=== PATIENT | male | born 1945 | race Caucasian/White ===

== ENCOUNTER 2016-07-06 23:56 | Emergency (ER) | payer MEDICARE ==
[~2016-07-06] VITALS: Ht 182.9 cm; Wt 116.6 kg
[~2016-07-06 23:56] MED LIST: AMOXICILLIN500 MG PO; ASPIRIN LOW DOS81 M1 PO; ATORVASTATIN CA20 MG PO; TOPROL XL50 MG PO
[2016-07-07] MEDS ORDERED: ATORVASTATIN CA10 MG PO (00:14)
[2016-07-07 01:22] LABS: URINE BILIRUBIN - DIPSTICK NEGATIVE (NEGATIVE); URINE BLOOD DIPSTICK NEGATIVE (NEGATIVE); URINE CLARITY CLEAR; URINE COLOR YELLOW; URINE GLUCOSE - DIPSTICK NEGATIVE (NEGATIVE); URINE KETONE TRACE mg/dL (NEGATIVE); URINE LEUK ESTERASE NEGATIVE (NEGATIVE); URINE NITRITE - DIPSTICK NEGATIVE (Negative); URINE PROTEIN - DIPSTICK NEGATIVE (NEG-TRACE); URINE SPECIFIC GRAVITY 1.015; URINE UROBILINOGEN - DIPSTICK 0.2 E.U./dL (0.2)
[2016-07-07 01:23] LABS: HEMATOCRIT 38.9 % (39.0-50.0); HEMOGLOBIN 13.5 g/dl (14.0-18.0); IMMATURE GRANULOCYTES 0.2 % (0.0-1.0); MEAN CELL VOLUME 89.4 fL CALC (80.0-100.0); MEAN CORPUSCULAR HGB CONC 34.7 g/L CALC (32.0-36.0); NEUT# 4.76 thou/uL (1.82-7.42); RED BLOOD COUNT 4.35 mill/uL (4.70-6.10); RED CELL DISTRI WIDTH 11.9 % (11.5-15.5)
[2016-07-07 01:40] LABS: ALBUMIN 3.8 g/dL (3.2-5.0); ALKALINE PHOSPHATASE 59 u/l (38-126); ANION GAP 13 (6-22 (CALC)); BILIRUBIN, TOTAL 0.4 mg/dL (0.0-1.4); BUN 13 mg/dL (8-23); BUN/CREATININE RATIO 16 (12-20 (CALC)); CARBON DIOXIDE 26 mmol/l (22-30); CHLORIDE 101 mmol/l (95-108); CREATININE 0.8 mg/dL (0.7-1.3); GFR > 60 ML/MIN (>=60 (CALC)); GFR FOR AFR.AMER. > 60 ML/MIN (>=60 (CALC)); GLUCOSE 108 mg/dL (82-115); POTASSIUM 3.7 mmol/l (3.5-5.1); SGOT/AST 17 u/l (19-48); SGPT/ALT 38 u/l (11-66); SODIUM 136 mmol/l (137-146); TOTAL PROTEIN 6.5 g/dL (6.3-8.2)
[2016-07-07 01:46] LABS: INFLUENZA A NONE DETECTED (NONE DETECT); INFLUENZA B NONE DETECTED (NONE DETECT)
[2016-07-07 01:52] LABS: MYOGLOBIN 23 ng/mL (0 - 121)
[2016-07-07] MEDS ORDERED: AMOXICILLIN500 MG PO (02:28)
[2016-07-07 03:10] VITALS: BP 120/68
== END 2016-07-07 03:10 | disposition home or self-care (01) ==
LOC: ED 23:56
PROVIDERS: Emergency Medicine
DX: J02.0 Streptococcal pharyngitis (principal); I10 Essential (primary) hypertension; E78.5 Hyperlipidemia, unspecified; R94.31 Abnormal electrocardiogram [ECG] [EKG]; R51 Headache; R05 Cough; R53.1 Weakness

== ENCOUNTER 2021-04-22 08:02 | Emergency (ER) | payer MEDICARE ==
[~2021-04-22] VITALS: Ht 182.9 cm; Wt 108.0 kg
[~2021-04-22 08:02] MED LIST changes: +ATORVASTATIN CA10 MG PO
[2021-04-22 08:50] LABS: HEMATOCRIT 43.4 % (39.0-50.0); HEMOGLOBIN 14.6 g/dl (14.0-18.0); MEAN CELL VOLUME 91.2 fL CALC (80.0-100.0); MEAN CORPUSCULAR HGB 30.7 pG CALC (26.0-32.0); MEAN CORPUSCULAR HGB CONC 33.6 g/dL CAL (32.0-36.0); NEUT# 5.02 thou/uL (1.82-7.42); RED BLOOD COUNT 4.76 mill/uL (4.70-6.10)
[2021-04-22] MEDS ORDERED: COZAAR50 MG PO (09:00)
[2021-04-22] MEDS ORDERED: AMOXICILLIN500 MG PO ×2 (09:07→11:02)
[2021-04-22] MEDS ORDERED: CLARITIN10 M2 PO ×2 (09:07→11:02)
[2021-04-22 09:26] LABS: ALBUMIN 3.8 g/dL (3.2-5.0); ALKALINE PHOSPHATASE 59 u/l (38-126); ANION GAP 11 (6-22 (CALC)); BILIRUBIN, TOTAL 0.6 mg/dL (0.0-1.4); BUN 16 mg/dL (8-23); BUN/CREATININE RATIO 20 (12-20 (CALC)); CARBON DIOXIDE 28 mmol/l (22-30); CHLORIDE 97 mmol/l (95-108); CREATININE 0.8 mg/dL (0.7-1.3); GFR > 60 ML/MIN (>=60 (CALC)); GFR FOR AFR.AMER. > 60 ML/MIN (>=60 (CALC)); SGOT/AST 26 u/l (19-48); SODIUM 133 mmol/l (137-146); TOTAL PROTEIN 6.7 g/dL (6.3-8.2)
[2021-04-22 09:45] VITALS: BP 132/79
== END 2021-04-22 09:56 | disposition home or self-care (01) ==
LOC: ED 08:02
PROVIDERS: Emergency Medicine
DX: U07.1 COVID-19 (principal); I10 Essential (primary) hypertension

== ENCOUNTER 2022-07-19 08:39 | Day surgery (SDC) | payer MEDICARE ==
[~2022-07-19] VITALS: Ht 182.9 cm; Wt 109.8 kg
[~2022-07-19 08:39] MED LIST changes: +CLARITIN10 M2 PO; +COZAAR50 MG PO
[2022-07-19 11:59] VITALS: BP 133/64
== END 2022-07-19 12:20 | disposition home or self-care (01) ==
LOC: ENDO 08:39 → ORM 11:15 → ENDO 12:20
PROVIDERS: ATTEND Internal Medicine Gastroenterology
PROC: 0DBK8ZX Excision of Ascending Colon, Via Natural or Artificial Opening Endoscopic, Diagnostic (ICD-10-PCS; principal; 2022-07-19)
PROC: 0DBL8ZX Excision of Transverse Colon, Via Natural or Artificial Opening Endoscopic, Diagnostic (ICD-10-PCS; 2022-07-19)
DX: Z12.11 Encounter for screening for malignant neoplasm of colon (principal); Q43.9 Congenital malformation of intestine, unspecified; D12.2 Benign neoplasm of ascending colon; K57.30 Diverticulosis of large intestine without perforation or abscess without bleeding; K64.8 Other hemorrhoids; I10 Essential (primary) hypertension; E78.5 Hyperlipidemia, unspecified; Z86.010 Personal history of colon polyps